=== PATIENT | female | born 1970 | race Caucasian/White ===

== ENCOUNTER 2016-08-24 09:46 | Emergency (ER) | payer OTHER ==
[~2016-08-24] VITALS: Ht 162.6 cm; Wt 66.3 kg
[2016-08-24 12:43] VITALS: BP 108/72
== END 2016-08-24 12:51 | disposition home or self-care (01) ==
LOC: EME 09:46
DX: S09.90XA Unspecified injury of head, initial encounter (principal); H57.02 Anisocoria; M54.2 Cervicalgia; W20.8XXA Other cause of strike by thrown, projected or falling object, initial encounter; F17.200 Nicotine dependence, unspecified, uncomplicated
CPT/HCPCS: 70450; 72125; 99281; 99283